=== PATIENT | female | born 1980 | race Caucasian/White ===

== ENCOUNTER 2018-12-12 11:29 | Emergency (ER) | payer OTHER, MEDICAID ==
[~2018-12-12] VITALS: Ht 160 cm; Wt 86.2 kg
[2018-12-12] MEDS ORDERED: MOBIC7.5 MG PO (12:54)
[2018-12-12] MEDS ORDERED: ACETAMINOPHEN-1 EAC1 PO (13:08)
[2018-12-12 13:09] VITALS: BP 126/70
== END 2018-12-12 13:10 | disposition home or self-care (01) ==
LOC: M.ERS 11:29
DX: M76.61 Achilles tendinitis, right leg (principal)

== ENCOUNTER 2019-01-08 21:59 | Emergency (ER) | payer OTHER, MEDICAID ==
[~2019-01-08] VITALS: Ht 160 cm; Wt 86.2 kg
[~2019-01-08 21:59] MED LIST: ACETAMINOPHEN-1 EAC1 PO; MOBIC7.5 MG PO
[2019-01-08] MEDS ORDERED: NORCO 5-325 TA1 EAC1 PO (22:23)
[2019-01-08 23:16] LABS: HEMATOCRIT 37.5 % (37.0-47.0); HEMOGLOBIN 12.7 gm/dL (12.0-15.0); MCHC 33.9 g/dL (28.0-37.0); MCV 88.6 fL (80.0-100.0); MPV 8.7 fl. (7.2-11.1); NUCLEATED RBCS 0 /100WBC; PLATELET COUNT* 272 thou/uL (150-400); RBC 4.23 mil/uL (4.20-5.00); RDW-CV 13.3 % (10.5-14.5); WBC 9.2 thou/uL (4.0-11.0)
[2019-01-08 23:35] LABS: ABSOLUTE LYMPHOCYTES 0.7 thou/uL (0.8-5.3); ABSOLUTE MONOCYTES 0.3 thou/uL (0.0-1.2); ABSOLUTE NEUTROPHILS 8.2 thou/uL (1.6-8.1); PLATELET ESTIMATE ADEQUATE
[2019-01-09] MEDS ORDERED: PERCOCET 5-3251 EACH PO (01:59)
[2019-01-09 02:20] VITALS: BP 136/67
== END 2019-01-09 02:22 | disposition home or self-care (01) ==
LOC: M.ERS 21:59
PROVIDERS: Personal Emergency Response Attendant
DX: Z01.89 Encounter for other specified special examinations (principal)

== ENCOUNTER → 2019-02-19 | Outpatient (CLI) | payer BC, OTHER, MEDICAID ==
[~2019-02-19] MED LIST changes: +NORCO 5-325 TA1 EAC1 PO; +PERCOCET 5-3251 EACH PO
== END ==
LOC: M.WC 08:00
DX: T81.89XA Other complications of procedures, not elsewhere classified, initial encounter (principal); L89.899 Pressure ulcer of other site, unspecified stage; S91.301A Unspecified open wound, right foot, initial encounter; X58.XXXA Exposure to other specified factors, initial encounter; Y93.89 Activity, other specified; Y92.89 Other specified places as the place of occurrence of the external cause; Y99.8 Other external cause status; Y83.8 Other surgical procedures as the cause of abnormal reaction of the patient, or of later complication, without mention of misadventure at the time of the procedure

== ENCOUNTER → 2019-02-26 | Outpatient (CLI) | payer BC, OTHER, MEDICAID | LOC: M.WC 04:35 | DX: T81.89XD Other complications of procedures, not elsewhere classified, subsequent encounter (principal); L89.890 Pressure ulcer of other site, unstageable; Y83.8 Other surgical procedures as the cause of abnormal reaction of the patient, or of later complication, without mention of misadventure at the time of the procedure ==

== ENCOUNTER → 2019-03-05 | Outpatient (CLI) | payer BC, OTHER, MEDICAID | LOC: M.WC 00:49 | DX: T81.89XD Other complications of procedures, not elsewhere classified, subsequent encounter (principal); L89.899 Pressure ulcer of other site, unspecified stage; S91.301D Unspecified open wound, right foot, subsequent encounter; X58.XXXD Exposure to other specified factors, subsequent encounter; Y83.8 Other surgical procedures as the cause of abnormal reaction of the patient, or of later complication, without mention of misadventure at the time of the procedure ==

== ENCOUNTER → 2019-03-12 | Outpatient (CLI) | payer BC, OTHER, MEDICAID | LOC: M.WC 04:57 | DX: T81.89XD Other complications of procedures, not elsewhere classified, subsequent encounter (principal); L89.899 Pressure ulcer of other site, unspecified stage; S91.301D Unspecified open wound, right foot, subsequent encounter; X58.XXXD Exposure to other specified factors, subsequent encounter; Y83.8 Other surgical procedures as the cause of abnormal reaction of the patient, or of later complication, without mention of misadventure at the time of the procedure ==

== ENCOUNTER → 2019-09-08 | Outpatient (CLI) | payer OTHER | LOC: M.RAD 09:58 | DX: M19.072 Primary osteoarthritis, left ankle and foot (principal); M77.32 Calcaneal spur, left foot ==